=== PATIENT | male | born 1935 | race Caucasian/White ===

== ENCOUNTER → 2017-01-06 | Outpatient (REF) | payer MEDICARE, OTHER ==
[~2017-01-06] MED LIST: /QUET25TA OR; /TIOT18INH INH; ACET65TA OR; AMANTADINE PO; ARIC10TA OR; ARIC1TAB2 PO; ASPI1TAB PO; ASPI81TA83 OR; CIPR500T4 OR; CLIN150C14 PO; COMT200T PO; D3 A1000 PO; GABA-279 PO; HYDR25TA6 OR; HYDR25TAB PO; LIPI10TA OR; LUPR45IN IM; MULTIVIT PO; MYSO50TA5 PO; PARL5CAP PO; PERI0.126 SSP; QUET5TAB PO; REQU2TAB3 PO; REQU4TAB3 OR; RITA5TAB PO; SERO400T3 OR; SINE25TA2 PO; SINE25TA5 PO; VITA100C2 PO; VITA250011 SL; VITA400C OR; VITA500T OR; VITA500T88 PO; VITAMIN B 12 PO; VITAMIN D 3 PO; VITMTA PO
== END ==
LOC: M LABNEURO 12:20
PROVIDERS: ATTEND Psychiatry & Neurology Neurology
DX: G20 Parkinson's disease (principal); Z79.899 Other long term (current) drug therapy